=== PATIENT | male | born 1975 | race Caucasian/White ===

== ENCOUNTER → 2017-01-18 | Outpatient (CLI) | payer BC ==
[~2017-01-18] MED LIST: ASPI-482 PO; ATOR10TA60 PO; CONTRAST GIVEN MC PRN; DAPA1TAB5 PO; GLIM1TAB2 PO; IOHEXOL 300 MG/ML 10ML VIAL. IT ONE; LIDOCAINE 1% Multi-Dose 20 ML VIAL. ID ONE; METO100T2 PO; PRAV10TA2 PO
--- NOTE | 2017-01-18 10:38 | KCIC ---
AP and lateral lumbar spine with flexion and extension views Indication: Chronic low back pain with bilateral leg radiculopathy worse on the right FINDINGS: Alignment and curvature are within normal limits. No abnormal motion through flexion or extension. Vertebral body heights are maintained. IMPRESSION: Negative for malalignment or abnormal motion through flexion or extension. Electronically signed by: Brandyn Kennedy MD (01/18/2017 10:35 AM)
--- NOTE | 2017-01-18 10:43 | KCIC ---
LUMBAR MYELOGRAM INDICATION: Neck pain, low back pain, and right leg radiculopathy Fluoroscopy time: 2:12 minutes TECHNIQUE: After discussion of the procedure, indications, risks, benefits, and alternatives the patient provided written and oral consent for the procedure. With the patient in a prone position on the fluoroscopy table, the L3-L4 interspace was selected for puncture and the overlying skin was prepped and draped in sterile fashion. Local anesthesia was achieved with approximately 3 mL of buffered 1% lidocaine. Under intermittent fluoroscopic guidance, a 25 Dewey spinal needle was advanced into the thecal space with return of clear CSF. Approximately 10 mL of Isovue 300M contrast was administered into the thecal space under intermittent fluoroscopic observation. The needle was removed and pressure applied until hemostasis was achieved. The patient was then repositioned into a lateral decubitus position and the head lowered until contrast was visualized to reach the upper cervical level. The table was then brought back to baseline. The patient was sent to CT for scanning through the cervical and lumbar spine. The patient tolerated the procedure well without immediate complication. Post myelographic images demonstrate contrast within the thecal sac of the cervical and lumbar spine. IMPRESSION: Technically successful fluoroscopy guided intrathecal injection of contrast, to be followed by CT myelogram of the cervical and lumbar spine. Electronically signed by: Brandyn Kennedy MD (01/18/2017 10:40 AM)
--- NOTE | 2017-01-18 11:46 | KCIC ---
CT LUMBAR MYELOGRAM HISTORY: Low back pain with bilateral lower extremity radiculopathy worse on the right TECHNIQUE: Following uneventful intrathecal administration of iodinated contrast, the patient was then transported to CT where 2.5 mm contiguous axial images were obtained through the lumbar spine. Multiplanar reformations were performed. FINDINGS: Alignment and curvature are within normal limits. There is no compression fracture or deformity. Disc space heights are well maintained. The conus terminates normally at the level of L1. Visualized intra-abdominal contents demonstrates diffuse fatty infiltration of the liver. Level by level analysis demonstrates no significant central spinal or neural foraminal stenosis. There is no clumping of the nerve roots. IMPRESSION: Negative CT myelogram Electronically signed by: Brandyn Kennedy MD (01/18/2017 11:43 AM)
--- NOTE | 2017-01-18 11:55 | KCIC ---
CT CERVICAL MYELOGRAM Neck pain with paresthesias of the bilateral hands COMPARISON: None TECHNIQUE: Multiple contiguous axial images were obtained through the cervical spine. Coronal and sagittal reformations were created. Images were obtained after intrathecal administration of iodinated contrast. Findings: The occipital condyles are normally with the lateral masses of C1. The odontoid is intact. Alignment and curvature are within normal limits. The vertebral body heights are well maintained. There is no perching of the facets. Visualized soft tissues of the neck are unremarkable. At C2-C3 there is a small disc bulge but this does not contact the cord. At C3-4 there is a disc osteophyte complex which is very small and does not contact cord. Neural foramina are patent. At C4-5 there is a disc osteophyte complex which abuts the ventral surface of the cord but does not cause mass effect upon it. At C5-C6 there is a disc osteophyte complex which mildly impresses upon the ventral surface of the cord. There is also at least mild left foraminal narrowing from a left eccentric portion of the disc osteophyte complex. AP diameter of the canal is narrowed to 8 mm. At C6-C7 there is a disc osteophyte complex which abuts the ventral surface of the cord but does not cause mass effect upon it. At C7-T1 there is no spinal stenosis. IMPRESSION: At C5-C6 there is a left eccentric disc osteophyte complex which causes mass effect upon the left aspect of the cord and at least mild left foraminal narrowing. Electronically signed by: Brandyn Kennedy MD (01/18/2017 11:52 AM)
== END | disposition home or self-care (01) ==
LOC: KCIC 08:44
PROVIDERS: ATTEND Neurological Surgery
DX: M50.222 Other cervical disc displacement at C5-C6 level (principal); M54.16 Radiculopathy, lumbar region; Z86.79 Personal history of other diseases of the circulatory system; I10 Essential (primary) hypertension; Z79.01 Long term (current) use of anticoagulants; Z79.4 Long term (current) use of insulin
CPT/HCPCS: 72110; 72126; 72132; 72270; Q9967